=== PATIENT | male | born 1945 | race Caucasian/White ===

== ENCOUNTER 2017-10-13 07:23 | Inpatient (IN) | payer MEDICARE, MEDICAID ==
[~2017-10-13] VITALS: Ht 188 cm; Wt 77.7 kg
[~2017-10-13 07:23] MED LIST: ASPI-496 PO; HYDR1TAB12 PO; LISI-170 PO; METO25TA35 PO; TERA2CAP3 PO
[2017-10-13] MEDS ORDERED: MORPHINE SULFATE 4 MG/ML, 1ML ONE (08:28)
[2017-10-13] MEDS ORDERED: ONDANSETRON 2MG/ML, 2ML ONE (08:28)
[2017-10-13] MEDS ORDERED: ONDANSETRON 2MG/ML, 2ML IVPush ONE ×2 (08:30→10:30)
[2017-10-13] MEDS ORDERED: MORPHINE SULFATE 4 MG/ML, 1ML IVPush PRN ×2 (08:30→10:30)
[2017-10-13] MEDS ORDERED: SODIUM CHLORIDE FLUSH 10ML SYR IVF ONE ×2 (08:30→10:30)
[2017-10-13 10:59] LABS: BASOPHILS # (AUTO) 0.05 x10^3/uL (0-0.1); BASOPHILS % (AUTO) 1 % (0-1); EOSINOPHILS # (AUTO) 0.04 x10^3/uL (0-0.4); EOSINOPHILS % (AUTO) 0 % (1-7); LYMPHOCYTES # (AUTO) 0.97 x10^3/uL (1-3.4); LYMPHOCYTES % (AUTO) 11 % (22-44); MD NO; MEAN CORPUSCULAR HEMOGLOBIN 30.7 pg (27.5-34.5); MEAN CORPUSCULAR HGB CONC 33.4 g/dL (33.2-36.2); MEAN CORPUSCULAR VOLUME 91.9 fL (81-97); MONOCYTES # (AUTO) 0.73 x10^3/uL (0.2-0.8); MONOCYTES % (AUTO) 8 % (2-9); NEUTROPHILS # (AUTO) 7.17 x10^3/uL (1.8-6.8); NEUTROPHILS % (AUTO) 80 % (42-75); PLATELET COUNT 254 x10^3/uL (130-400); RED BLOOD COUNT 4.79 x10^6/uL (4.38-5.82); RED CELL DISTRIBUTION WIDTH 14.4 % (9.4-14.8)
[2017-10-13 11:17] LABS: ALBUMIN 3.9 g/dL (3.4-5.0); ANION GAP 6 mmol/L (5-15); CALCIUM 8.5 mg/dL (8.5-10.1); CHLORIDE 109 mmol/L (98-107); INTERNATIONAL NORMALIZED RATIO 1.13 (0.93-1.1); PROTHROMBIN TIME 11.6 Seconds (9.6-11.5)
[2017-10-13 11:27] LABS: ALKALINE PHOSPHATASE 74 U/L (45-117); BILIRUBIN,TOTAL 0.7 mg/dL (0.2-1.0); CREATININE 1.07 mg/dL (0.7-1.3); TOTAL PROTEIN 7.4 g/dL (6.4-8.2)
[2017-10-13 11:31] LABS: MICROSCOPIC NOT IND
[2017-10-13 11:40] LABS: CULTURE INDICATED? NO
[2017-10-13 11:49] LABS: ALANINE AMINOTRANSFERASE 29 U/L (12-78)
[2017-10-13] MEDS ORDERED: SODIUM CHLORIDE 0.9% 1,000 ML IV ONE (12:20)
[2017-10-13] MEDS ORDERED: SODIUM CHLORIDE FLUSH 10ML SYR IVF PRN (12:30)
[2017-10-13 13:22] VITALS: BP 162/81
[2017-10-13] MEDS ORDERED: POLYETHYLENE GLYCOL 17 GM PACKET PO PRN (14:30)
[2017-10-13] MEDS ORDERED: TEMAZEPAM 15 MG CAPSULE PO PRN (14:30)
[2017-10-13] MEDS ORDERED: ENALAPRILAT 1.25 MG/ML, 2ML IVPush PRN (14:30)
[2017-10-13] MEDS ORDERED: ACETAMINOPHEN 325 MG TABLET PO PRN (14:30)
[2017-10-13] MEDS ORDERED: morphine SULFATE 10 MG/ML, 1ML IVPush PRN (14:30)
[2017-10-13] MEDS ORDERED: ONDANSETRON 2MG/ML, 2ML IVPush PRN (14:30)
[2017-10-13 15:56] LABS: BASOPHILS # (AUTO) 0.03 x10^3/uL (0-0.1); BASOPHILS % (AUTO) 1 % (0-1); EOSINOPHILS # (AUTO) 0.02 x10^3/uL (0-0.4); EOSINOPHILS % (AUTO) 0 % (1-7); LYMPHOCYTES # (AUTO) 0.98 x10^3/uL (1-3.4); LYMPHOCYTES % (AUTO) 15 % (22-44); MD NO; MEAN CORPUSCULAR HEMOGLOBIN 30.4 pg (27.5-34.5); MEAN CORPUSCULAR HGB CONC 33.4 g/dL (33.2-36.2); MEAN PLATELET VOLUME 8.1 fL (7.4-10.4); MONOCYTES # (AUTO) 0.69 x10^3/uL (0.2-0.8); MONOCYTES % (AUTO) 10 % (2-9); NEUTROPHILS # (AUTO) 4.92 x10^3/uL (1.8-6.8); NEUTROPHILS % (AUTO) 74 % (42-75); PLATELET COUNT 229 x10^3/uL (130-400); RED BLOOD COUNT 4.66 x10^6/uL (4.38-5.82); RED CELL DISTRIBUTION WIDTH 14.1 % (9.4-14.8)
[2017-10-13] MEDS ORDERED: OMNIPAQUE 350 MG/ML, 75ML BOTTLE ONE ×2 (16:04→16:06)
[2017-10-13 16:07] LABS: FREE T4 (FREE THYROXINE) 0.98 ng/dL (0.76-1.46); THYROID STIMULATING HORMONE 1.13 mIU/L (0.358-3.740)
[2017-10-13] MEDS: SODIUM CHLORIDE 0.9% 1,000 ML IV SCH (16:31)
[2017-10-13 17:10] LABS: AMPHETAMINE SCREEN, URINE Negative (Negative); BARBITURATE SCREEN, URINE Negative (Negative); BENZODIAZEPINE SCREEN, URINE Negative (Negative); CANNABINOID SCREEN, URINE Negative (Negative); COCAINE SCREEN, URINE Negative (Negative); METHADONE SCREEN, URINE Negative (Negative); OPIATE SCREEN, URINE Positive (Negative)
[2017-10-13] MEDS: METOPROLOL TARTRATE 25 MG TABLET PO SCH ×3 (17:33→20:59)
[2017-10-13 19:06] VITALS: BP 143/79
[2017-10-13] MEDS: TERAZOSIN 2MG CAPSULE PO SCH (20:58)
[2017-10-13] MEDS: LISINOPRIL 20 MG TABLET PO SCH (20:58)
[2017-10-13] MEDS: OXYcodone IR 5MG TABLET PO PRN (20:59)
[2017-10-13] MEDS ORDERED: LISINOPRIL 20 MG TABLET PO SCH (21:00)
[2017-10-14 01:31] VITALS: BP 92/57
[2017-10-14] MEDS: SODIUM CHLORIDE 0.9% 1,000 ML IV SCH ×3 (01:37→22:24)
[2017-10-14 05:40] LABS: ALANINE AMINOTRANSFERASE 19 U/L (12-78); ALBUMIN 2.9 g/dL (3.4-5.0); ANION GAP 7 mmol/L (5-15); CHLORIDE 109 mmol/L (98-107); CREATININE 1.85 mg/dL (0.7-1.3)
[2017-10-14 05:42] LABS: ALKALINE PHOSPHATASE 53 U/L (45-117); BILIRUBIN,TOTAL 0.6 mg/dL (0.2-1.0); TOTAL PROTEIN 5.7 g/dL (6.4-8.2)
[2017-10-14] MEDS: OXYcodone IR 5MG TABLET PO PRN ×2 (06:31→20:01)
[2017-10-14 06:41] VITALS: BP 108/64
[2017-10-14] MEDS: LISINOPRIL 20 MG TABLET PO SCH ×2 (09:00→20:01)
[2017-10-14] MEDS: METOPROLOL TARTRATE 25 MG TABLET PO SCH ×2 (09:24→20:01)
[2017-10-14 12:32] VITALS: BP 106/66
[2017-10-14 19:21] VITALS: BP 102/68
[2017-10-14] MEDS: TERAZOSIN 2MG CAPSULE PO SCH (20:01)
[2017-10-14 21:38] VITALS: BP 98/52
[2017-10-15 01:12] VITALS: BP 102/61
[2017-10-15] MEDS: OXYcodone IR 5MG TABLET PO PRN ×3 (07:23→21:16)
[2017-10-15] MEDS: SODIUM CHLORIDE 0.9% 1,000 ML IV SCH ×2 (07:24→17:02)
[2017-10-15 07:45] VITALS: BP 122/69
[2017-10-15] MEDS: LISINOPRIL 20 MG TABLET PO SCH ×2 (08:50→21:00)
[2017-10-15] MEDS: METOPROLOL TARTRATE 25 MG TABLET PO SCH ×2 (08:50→21:00)
[2017-10-15 10:52] LABS: ANION GAP 5 mmol/L (5-15); CALCIUM 7.4 mg/dL (8.5-10.1); CHLORIDE 111 mmol/L (98-107); CREATININE 0.98 mg/dL (0.7-1.3)
[2017-10-15 14:00] VITALS: BP 104/58
[2017-10-15 18:28] VITALS: BP 110/67
[2017-10-15 21:10] VITALS: BP 110/66
[2017-10-15] MEDS: TERAZOSIN 2MG CAPSULE PO SCH (21:16)
[2017-10-16] MEDS: OXYcodone IR 5MG TABLET PO PRN (01:30)
[2017-10-16 01:38] VITALS: BP 114/63
[2017-10-16] MEDS: SODIUM CHLORIDE 0.9% 1,000 ML IV SCH ×2 (02:57→13:00)
[2017-10-16 05:48] LABS: CHLORIDE 111 mmol/L (98-107)
[2017-10-16 05:50] LABS: ANION GAP 4 mmol/L (5-15); CALCIUM 7.7 mg/dL (8.5-10.1)
[2017-10-16 07:38] VITALS: BP 133/74
[2017-10-16] MEDS ORDERED: OXYC5TAB3 PO (09:19)
[2017-10-16] MEDS ORDERED: POLY17PO5 PO (09:19)
[2017-10-16] MEDS: METOPROLOL TARTRATE 25 MG TABLET PO SCH (09:21)
[2017-10-16] MEDS: LISINOPRIL 20 MG TABLET PO SCH (09:21)
[2017-10-16] MEDS ORDERED: BISACODYL 10 MG SUPP PR PRN (10:30)
[2017-10-16 13:59] VITALS: BP 113/63
== END 2017-10-16 16:15 | DRG 535 ==
LOC: ED 09:10 → 4NOR 12:20 → ED 13:51
PROVIDERS: ADMIT Hospitalist; ATTEND Internal Medicine
DX: S72.111A Displaced fracture of greater trochanter of right femur, initial encounter for closed fracture (principal); N17.0 Acute kidney failure with tubular necrosis; I10 Essential (primary) hypertension; S60.511A Abrasion of right hand, initial encounter; R00.0 Tachycardia, unspecified; R91.8 Other nonspecific abnormal finding of lung field; W10.1XXA Fall (on)(from) sidewalk curb, initial encounter; Y93.89 Activity, other specified; Y92.89 Other specified places as the place of occurrence of the external cause; Z90.49 Acquired absence of other specified parts of digestive tract; Y99.8 Other external cause status
CPT/HCPCS: 36415; 71045; 71260; 80048; 80053; 80307; 81003; 83735; 84100; 84439; 84443; 85025; 85610; 85730; 87040; 93005; 93306; 93880; 96374; 99285; J2405; Q9967; J7030